=== PATIENT | female | born 1985 | race Caucasian/White ===

== ENCOUNTER 2020-07-11 09:14 | Outpatient (CLI) | payer OTHER, SELFPAY ==
--- NOTE | 2020-07-11 07:00 | DI.US_ITS ---
EXAM: MG MAMMO DIAGNOSTIC BI CLINICAL HISTORY: R breast lump, upper inner quadrant, MSK vs breast,n63.0 TECHNIQUE: Mammograms were interpreted according to the usual protocol including computer analysis w [employer] CAD system, tomosynthesis and C-view imaging. COMPARISON: FINDINGS: Today's mammogram and right breast ultrasound are interpreted in conjunction. The patient reportedly has a questionable palpable abnormality of the right breast. The breasts are heterogeneously dense. No dominant mass or clumped microcalcification seen. There i s no evidence of a mass on breast ultrasound obtained in the region of the patient's questionable pal pable abnormality in approximately the 1 o'clock position breast. IMPRESSION: No specific evidence of malignancy at this time. The negative mammogram and ultrasound not entirely exclude the possibility of malignancy and should not preclude biopsy of any clinically suspicious pal pable breast abnormality. BI-RADS Category 1 - Negative Breast Density - Category C - Heterogeneously dense
--- NOTE | 2020-07-11 10:20 | DI.MAMMO_ITS ---
EXAM: MG MAMMO DIAGNOSTIC BI CLINICAL HISTORY: R breast lump, upper inner quadrant, MSK vs breast,n63.0 TECHNIQUE: Mammograms were interpreted according to the usual protocol including computer analysis w [employer] CAD system, tomosynthesis and C-view imaging. COMPARISON: FINDINGS: Today's mammogram and right breast ultrasound are interpreted in conjunction. The patient reportedly has a questionable palpable abnormality of the right breast. The breasts are heterogeneously dense. No dominant mass or clumped microcalcification seen. There i s no evidence of a mass on breast ultrasound obtained in the region of the patient's questionable pal pable abnormality in approximately the 1 o'clock position breast. IMPRESSION: No specific evidence of malignancy at this time. The negative mammogram and ultrasound not entirely exclude the possibility of malignancy and should not preclude biopsy of any clinically suspicious pal pable breast abnormality. BI-RADS Category 1 - Negative Breast Density - Category C - Heterogeneously dense
== END 2020-07-11 09:34 ==
PROVIDERS: PCP Family Medicine; Visit Provider Nurse Practitioner Women's Health
DX: R92.8 Other abnormal and inconclusive findings on diagnostic imaging of breast (principal); R92.2 Inconclusive mammogram
CPT/HCPCS: 76642; 77062; 77066; G0279

== ENCOUNTER 2021-08-16 11:19 | Outpatient (REF) | payer OTHER, SELFPAY ==
--- NOTE | 2021-08-16 21:00 | POCSPONT_PTH ---
PATIENT: Fabienne Mar LOC: [facility] U#:[id number] AGE/SX: 35/F ROOM: RE08/16/[address]: Rosina De Leon : 1985 BED: DIS: 08/16/2021 SPEC #: [id number] RECD: 08/17/21 11:30 STATUS: AALIYAHMarlen REMynor #: [id number] YESY: 08/16/21 21:[address]: Rosina De Leon DEPT: Surgical Specimen RECD BY: Rea Montenegro ENTERED: 08/18/21 11:31 SP TYPE: CHRIS SULLIVAN DR: Whitley Harding Tissues: CHROMOSOME ANALYSIS PROFILE 1 - ,SPONTANEOUS Procedures: GROSS AND MICRO LEVEL 4 CHROMOSOME ANALYSIS 15-20 CELLS CHROMOSOME ANALYSIS TISSUE CULTURE Comments: [id number] (CYTOGENETICS - [id number])
== END 2021-08-16 11:20 | disposition home or self-care (01) ==
LOC: LBN 11:19
PROVIDERS: PCP Family Medicine; Visit Provider Obstetrics & Gynecology Gynecology
DX: O03.9 Complete or unspecified spontaneous abortion without complication (principal); Z87.59 Personal history of other complications of pregnancy, childbirth and the puerperium
CPT/HCPCS: 88305; 88233; 88262

== ENCOUNTER 2021-08-16 19:53 | Emergency (ER) | payer OTHER, SELFPAY ==
[2021-08-16 20:00] VITALS: BP 130/86; PULSE 100; RESP 18; TEMP 36.9; O2SAT 98
--- NOTE | 2021-08-16 20:10 | ED.GENADUL_ITS ---
Discharge Plan Disposition Patient Disposition: HOME Condition: Stable Discharge Details Clinical Impression: Miscarriage Primary Care Provider: Whitley Harding ED Provider: Shelly Lopez Home Meds and New Rx's Prescriptions: Continued prenat.vits,mary lou,[id number] Tablet 1 tab PO DAILY RF: 0 loratadine [Claritin] 10 mg tablet 10 mg PO DAILY PRN (Reason: allergy symptoms) RF: 0 misoprostol 200 mcg tablet 800 mcg PO Q8H PRN Qty: 12 RF: 0 methylergonovine [Methergine] 0.2 mg tablet 0.2 mg PO TID 2 Days Qty: 6 RF: 0 Discharge Instructions Instructions: Miscarriage (ED) Additional Instructions: Bleeding has slowed down after treatment with Dr. De Leon. You received 1 dose of antibiotics here as was her recommendation. No tissue has come to the lab for genetic testing. Please encourage hydration. Your labs are reassuring here today but your potassium slightly low. Please try to increase potassium rich foods in her diet. Please follow-up with [facility] for reevaluation and to discuss genetic results. Please return to the emergency department if you have increased bleeding, fevers/chills, abdominal pain or other new/worsening symptoms. Referrals: Whitley Harding MD [Primary Care Provider] - Rosina De Leon MD [ [facility] STAFF PHYSICIAN] - Medical Decision Making Patient is a pleasant 35-year-old female, G7, P1 with 6 spontaneous abortions. She is presenting today with chief complaint of heavy bleeding after medical induced . Patient is 10 weeks gestation, had a dating ultrasound yesterday which showed no cardiac activity patient was prescribed misoprostol which she took at 730 this morning. She states that around 1430 this afternoon she began having heavier bleeding. States that she is now passing softball size clots every time she stands up. She denies any lightheadedness, shortness of breath, chest pain. Has not had difficulties with bleeding like this on her previous spontaneous abortions. Has not required surgical D&C. Patient last ate 1 hour ago. She denies any pain at this time. No change in bowel or bladder habits. On exam, patient appears slightly anxious and upset but otherwise nontoxic. Vital signs are stable, abdominal exam benign. We were contacted by Dr. De Leon prior to the patient's arrival here, contacted Dr. De Leon again when she arrived to come and evaluate the patient. Patient was evaluated by Dr. De Leon. Vaginal exam was performed and products of conception was able to be removed from the patient's cervix. Patient feeling much improved and feels like the bleeding has been swelling. She did recommend 1 dosing IV doxycycline which patient is receiving. CBC without significant abnormality, patient is not anemic. No leukocytosis. Deceptively low at 3.2. She is nauseous with me for freestyle, I am concerned that giving her oral potassium right now would increase this. She also prefers to obtain her potassium through good dietary habits and will try to increase potassium rich foods in her diet. Blood type is a positive. Patient continues to feel well. Received IV abx. Will f/u with [facility]. Strict return precautions discussed. All of her questions and concerns were addressed, she in agreement with this plan. HPI General Mode of arrival: ambulatory . Date/Time Provider Initiated Documentation: 08/16/21 19:55 . Limitations to Documentation: no limitations . Information obtained by: patient, RN/MD (contacted by Dr. De Leon prior to arrival), RN notes reviewed and old records reviewed . History of Present Illness 35 year old F presents to the emergency department with the chief complaint of vaginal bleeding in first trimester of , described as severe, Quality is described as other (patient denies pain at this time), and is localized to the genitals. Patient reports no radiation. Patient started experiencing this hour(s) and it has been constant. No relieving factors improve symptom(s), No exacerbating factors reported . Patient notes denies chest pain, diaphoresis, fever/chills, loss of appetite, nausea/vomiting, rash and shortness of breath. Patient did receive the following treatments prior to arrival, other (Misopristol) Related Data Home Medications Medication Instructions Recorded Confirmed loratadine 10 mg tablet 10 mg PO DAILY PRN 07/30/21 08/16/21 prenat.vits,mary lou,[id number] 1 tab PO DAILY 07/30/21 08/16/21 misoprostol 200 mcg tablet 800 mcg PO Q8H PRN #12 tab 08/15/21 08/16/21 methylergonovine 0.2 mg tablet 0.2 mg PO TID 2 Days #6 tab 08/16/21 08/16/21 Previous Rx's Medication Instructions Recorded misoprostol 200 mcg tablet 800 mcg PO Q8H PRN #12 tab 08/15/21 methylergonovine 0.2 mg tablet 0.2 mg PO TID 2 Days #6 tab 08/16/21 Allergies Allergy/AdvReac Type Severity Reaction Status Date / Time nickel AdvReac Skin Rash Unverified 08/16/21 20:03 General Stated Complaint: [facility] JO: 2 Review of Systems Constitutional Constitutional: Reports as per HPI, Denies chills, Denies fatigue, Denies fever(s) and Denies headache(s) ENT Ears, Nose, Mouth, and Throat: Denies dizziness and Denies headache(s) Cardiovascular Cardiovascular: Reports as per HPI, Denies chest pain and Denies dyspnea Respiratory Respiratory: Reports as per HPI, Denies cough and Denies dyspnea Gastrointestinal Gastrointestinal: Reports as per HPI Genitourinary Genitourinary: Reports as per HPI Musculoskeletal Musculoskeletal: Reports as per HPI and Denies back pain Integumentary/Breasts Skin/Breast: Reports as per HPI and Denies rash Neurologic Neurologic: Reports as per HPI, Denies dizziness and Denies headache(s) Endocrine Endocrine: Denies fatigue [facility] Active Problem List Incomplete (Acute) Miscarriage (Acute) (Acute) History of recurrent miscarriages (Acute) Social History Smoking/Tobacco Use Status: Never Smoking risk assessment performed?: Yes Alcohol Intake: never Drug use: Never Do you feel safe at home: Yes Do you feel safe in your relationship?: Yes Female Reproductive History Menstrual control method: none History History 7 Para 1 Hx # Term Pregnancies 1 Multiple births Hx # Pregnancies Ectopic pregnancies AB induced Hx Number of Living Children 1 AB spontaneous 6 Exam Const General: cooperative, healthy appearing, comfortable, no acute distress, well developed and anxious Nutritional Appearance: average body habitus and well nourished Orientation: alert and awake HENMT Head: normal to inspection Mouth: moist mucous membranes Resp Effort & Inspection: normal respiratory effort, able to speak in complete sentences and no respiratory distress Auscultation: clear to auscultation bilaterally, no rales, no rhonchi and no wheezes Cardio Rate: regular rate Rhythm: regular rhythm Heart Sounds: S1 normal and S2 normal GI Inspection: normal to inspection Palpation: soft and nontender Auscultation: normal bowel sounds Back/Spine/Pelvis Back: no CVA tenderness Skin General skin exam: no rashes or lesions noted Trauma: no lacerations or abrasions Neuro General: patient alert and patient awake Cognition: normal cognition Speech: speech normal Gait: normal gait Psych Appearance: grossly normal and well kempt Mental Status: mental status grossly normal Speech and Movement: speech and movement normal Course Vital Signs Vital signs: Vital Signs Temperature 36.9 C 08/16/21 20:00 Pulse 100 H 08/16/21 20:00 Respiratory Rate 18 08/16/21 20:00 Blood Pressure 130/86 08/16/21 20:00 Pulse Oximetry 98 08/16/21 20:00 Temperature 36.9 C 08/16/21 20:00 Temperature Source Temporal Artery Scan 08/16/21 20:00 Pulse 100 H 08/16/21 20:00 Respiratory Rate 18 08/16/21 20:00 Respiratory Effort Non-Labored 08/16/21 20:03 Blood Pressure 130/86 08/16/21 20:00 Pulse Oximetry 98 08/16/21 20:00 Oxygen Delivery Method Room Air 08/16/21 20:00 Oxygen Flow Rate 0 08/16/21 20:00 Pain Level 0 08/16/21 20:00
[2021-08-16] MEDS: Lactated Ringers 1,000 ML 1000 ML IV (20:19)
--- NOTE | 2021-08-16 20:19 | NUR.NOTE ---
Nursing Note: Patient brought in product of conception in a specimen container. Specimen labeled .
[2021-08-16 20:25] LABS: Abs Immature Grans 0.02 10^3/uL (0.0-0.06); Absolute Basophil Count 0.04 10^3/uL (0.0-0.2); Absolute Eosinophil Count 0.15 10^3/uL (0.0-0.7); Absolute Lymphocyte Count 2.51 10^3/uL (1.2-3.4); Absolute Monocyte Count 0.39 10^3/uL (0.1-0.8); Absolute Neutrophil Count 5.86 10^3/uL (1.2-6.7); Basophils % 0.4; Eosinophils % 1.7; HCT 36.7 % (36.0-46.0); HGB 12.4 g/dL (11.2-15.7); Immature Grans % 0.2; MCH 31.5 pg (27.0-33.0); MCHC 33.8 % (32.0-36.0); MCV 93.1 fL (80-95); MPV 10.1 fL (8.0-11.0); Monocytes % 4.3; Neutrophils % 65.4; Nucleated RBC 0 %; Platelet Count 253 10^3/uL (130-400); RBC 3.94 10^6/uL (3.93-5.22); RDW 11.8 % (11.7-14.6); RDW-SD 40.2 fL; WBC 8.97 10^3/uL (4.4-10.8)
[2021-08-16 20:28] LABS: Source Nasal/Nares
[2021-08-16 21:02] LABS: ALT 24 U/L (14-59); AST 14 U/L (15-37); Albumin 4.1 g/dL (3.4-5.0); Alkaline Phosphatase 51 U/L (46-116); Anion Gap 11.6 mmol/L (3-11); BUN 23 mg/dL (7-18); Bilirubin, Total 0.2 mg/dL (0.2-1.0); CO2 24.4 mmol/L (21.0-32.0); CREATININE 0.9 mg/dL (0.55-1.02); Chloride 101 mmol/L (98-107); Glucose 130 mg/dL (74-106); Potassium 3.2 mmol/L (3.5-5.1); Sodium 137 mmol/L (136-145); Total Protein 7.9 g/dL (6.4-8.2)
[2021-08-16 21:07] LABS: HCG Quant, Pregnancy 8873 mIU/mL (1-3)
[2021-08-16 21:10] LABS: COVID-19 PCR Negative (Negative)
--- NOTE | 2021-08-16 21:13 | OBCE_ITS ---
Date of service: 08/16/21 Time of Service: 21:13 Assessment and Plan Assessment and plan (1) Miscarriage: Status: Acute (2) Incomplete : Status: Acute Assessment and plan: Products of conception removed from external os. Gentle insertion of the ring forcep into the uterine cavity failed to return any additional products of conception. Patient was administered on a milligrams of doxycycline IV. The tissue was placed into sterile containers with normal saline and delivered to the lab. Patient will be discharged home with follow-up by phone 08/17/2021. She has an office visit scheduled on 08/23/2021 for discussion regarding recurrent SAB work-up. History of Present Illness History of Present Illness Chief Complaint: Complete SAB Consults Consult date: 08/16/21 [facility] Active Problem List (Updated 08/16/21 @ 21:26 by Rosina De Leon MD) Incomplete (Acute) Miscarriage (Acute) (Acute) History of recurrent miscarriages (Acute) Social History Smoking/Tobacco Use Status: Never Smoking risk assessment performed?: Yes Alcohol Intake: never Drug use: Never Do you feel safe at home: Yes Do you feel safe in your relationship?: Yes Female Reproductive History Menstrual control method: none History History 7 Para 1 Hx # Term Pregnancies 1 Multiple births Hx # Pregnancies Ectopic pregnancies AB induced Hx Number of Living Children 1 AB spontaneous 6 Exam Narrative Exam Narrative: Patient is a 35-year-old G7, P1 SAB 6 female with a known first trimester embryonic loss who [facility] to report passage of tissue with gushes of blood. I advised her to presented to the emergency department for further evaluation. LMP 06/04/2021 07/31/21. Initial OB TV U/S: viable IUP measuring 8.1wks. 08/15/2021. Embryonic demise with CRL c/w 8wks. No cardiac activity on sono. Patient declined D&C preferred medical management. She was given misoprostol to be taken at home. Onset of bleeding early this morning with increasing amounts of copious bright red blood throughout the day. Const General: no acute distress Nutritional Appearance: average body habitus Orientation: alert, awake and oriented x3 Resp Effort & Inspection: normal respiratory effort Cardio Rate: regular rate Rhythm: regular rhythm GI Inspection: normal to inspection Palpation: soft, no masses and nontender External Female Exam: normal external appearance and other (Blood on perineum and thighs) Speculum Exam - Vagina: tissue present in vagina (Protruding from external os with copious blood in vaginal vault) Speculum Exam - Cervix: cervical os open (Products of conception regressed with a ring forcep and sent to pathology) Bimanual Exam- Vagina & Uterus: normal bimanual exam and uterine size normal (Consistent with 8-week EGA) Other: With the patient in the dorsolithotomy position a bivalve speculum was pl aced in the vagina with the above-noted findings. Ring forcep was used to grasp the tissue protruding from the external os. The cervical os was carefully inspected and no evidence of copious bleeding was noted. The sterile ring forceps was then inserted into the uterine cavity with no tissue returned after several attempts. The heavy bleeding from the cervical os had subsided. The speculum and instruments were removed from the vagina. Skin General skin exam: no rashes or lesions noted Extrem General: normal to inspection Psych Appearance: grossly normal Mental Status: mental status grossly normal Speech and Movement: speech and movement normal Mood: congruent mood Affect: normal affect Attitude: cooperative Thought Process: normal Thought Content: normal Results Last Vital Signs Temp 98.4 F 08/16/21 20:00 Pulse 100 H 08/16/21 20:00 Resp 18 08/16/21 20:00 BP 130/86 08/16/21 20:00 Pulse Ox 98 08/16/21 20:00 Labs Result diagrams: 08/16/21 20:10 08/16/21 20:10 Labs: Laboratory Results - last 24 hr 08/16/21 08/16/21 08/16/21 20:10 20:10 20:10 WBC 8.97 RBC 3.94 Hgb 12.4 Hct 36.7 MCV 93.1 MCH 31.5 MCHC 33.8 RDW 11.8 Plt Count 253 MPV 10.1 Immature Gran % 0.2 Neutrophils % 65.4 Lymphocytes % 28.0 Monocytes % 4.3 Eosinophils % 1.7 Basophils % 0.4 Nucleated RBC % 0 Absolute Neutrophils 5.86 Absolute Lymphocytes 2.51 Absolute Monocytes 0.39 Absolute Eosinophils 0.15 Absolute Basophils 0.04 Sodium 137 Potassium 3.2 L Chloride 101 Carbon Dioxide 24.4 Anion Gap 11.6 H BUN 23 H Creatinine 0.9 Estimated GFR/1.73 m2 >= 60.00 Glucose 130 H Calcium 9.0 Total Bilirubin 0.2 AST 14 L ALT 24 Alkaline Phosphatase 51 Total Protein 7.9 Albumin 4.1 Beta HCG, Quant 8873 H COVID-19 Source Patient ABO/Rh A Positive Antibody Screen NEGATIVE 08/16/21 20:10 WBC RBC Hgb Hct MCV MCH MCHC RDW Plt Count MPV Immature Gran % Neutrophils % Lymphocytes % Monocytes % Eosinophils % Basophils % Nucleated RBC % Absolute Neutrophils Absolute Lymphocytes Absolute Monocytes Absolute Eosinophils Absolute Basophils Sodium Potassium Chloride Carbon Dioxide Anion Gap BUN Creatinine Estimated GFR/1.73 m2 Glucose Calcium Total Bilirubin AST ALT Alkaline Phosphatase Total Protein Albumin Beta HCG, Quant COVID-19 Source Nasal/Nares Patient ABO/Rh Antibody Screen
[2021-08-16] MEDS: DOXYCYCLINE 100 MG in Normal Saline 100 ML IVPB (21:19)
[2021-08-16 22:12] VITALS: BP 130/86; PULSE 100; RESP 18; TEMP 36.9; O2SAT 98
== END 2021-08-16 22:20 | disposition home or self-care (01) ==
PROVIDERS: Emergency Provider Physician Assistant; PCP Family Medicine
DX: O03.4 Incomplete spontaneous abortion without complication (principal)
CPT/HCPCS: 80053; 86850; 86900; 86901; 87635; 96361; 96365; 99284; 84702; 85025; 99283

== ENCOUNTER 2022-12-05 09:49 | Outpatient (REF) | payer OTHER, SELFPAY ==
--- NOTE | 2022-12-05 09:30 | PAPFT_PTH ---
PATIENT: Fabienne Mar LOC: [facility] U#:[id number] AGE/SX: 36/F ROOM: RE12/05/[address]: Arlette Post DO : 1985 BED: DIS: 12/05/2022 SPEC #: [id number] RECD: 12/05/22 12:57 STATUS: ZELAL[place] REQ #: [id number] YESY: 12/05/22 09:[address]: Arlette Post DEPT: [facility] Cytology RECD BY: Chanel German ENTERED: 12/05/22 12:58 SP TYPE: PAPFT OTHR DR: Whitley Harding Tissues: 1 - CX/ENDOCX FOR PAP SMEARS Procedures: PAP THIN PREP/UVM Screening HPV DNA PROBE Comments: [id number] (CHLAMYDIA/GC)
[2022-12-08 13:28] LABS: Chlamydia Result Negative (Negative); GC Result Negative (Negative)
== END 2022-12-05 09:50 | disposition home or self-care (01) ==
LOC: LBN 09:49
PROVIDERS: PCP Family Medicine; Visit Provider Obstetrics & Gynecology
DX: Z11.3 Encounter for screening for infections with a predominantly sexual mode of transmission (principal); Z12.4 Encounter for screening for malignant neoplasm of cervix; Z11.51 Encounter for screening for human papillomavirus (HPV)
CPT/HCPCS: 87491; 87591; 88142; 87624

== ENCOUNTER 2024-07-27 01:22 | Outpatient (CLI) | payer OTHER, SELFPAY ==
--- NOTE | 2024-07-27 07:00 | DI.MAMMO_ITS ---
Exam(s) US BREAST RT LIMITED MG MAMMO DIAGNOSTIC BI EXAM: MG MAMMO DIAGNOSTIC BI CLINICAL HISTORY: diagnostic,rt breast lump,n63.10. COMPARISON: US US BREAST RT COMPLETE from 07/11/2020 MG MG MAMMO DIAGNOSTIC BI from 07/11/2020 US US BREAST RT LIMITED from 07/27/2024 TECHNIQUE: Craniocaudal and mediolateral oblique Full Field Digital Mammography views of both breast s with Computer Aided Diagnosis followed by Tomosynthesis and right breast ultrasound. FINDINGS: Mammography/Tomosynthesis: Masses/Architectural Distortion: None seen. Microcalcifications: No suspicious pleomorphic-type are seen. Skin Thickening/Nipple Retraction: None. Right breast US: Echotexture: Normal appearance of the glandular tissue. Shadowing: No suspicious foci. Cyst: None. Solid lesions: Circumscribed 4 x 2 x 4 millimeter hypoechoic nodule without internal vascularity. Th e findings may represent a small fibroadenoma versus proteinaceous cyst. Ductal dilation: None. IMPRESSION: 1. 4 millimeter benign appearing lesion corresponding to the palpable abnormality. 2. Unless there is more urgent need, follow-up screening mammography is recommended, as per [place] [employer] guidelines. BI-RADS Category 2 - Benign Findings Breast Density - Category C - Heterogeneously dense Breast density category C or D implies that the patient has dense breast tissue. Dense breast tissue is very common and is not abnormal but dense breast tissue can make it harder to find cancer on a ma mmogram. Also, dense breast tissue may increase their breast cancer risk. This information about the result of the mammogram report was provided to the patient to raise their awareness. Use this report when you speak with the patient about their risks for breast cancer, which includes their family hist ory. At that time, you may recommend for more screening tests (Ultrasound or MRI) as they might be us eful based on their risk. A negative radiographic report should not delay biopsy if a dominant or clinically suspicious mass is present. Up to ten percent of cancers are not identified on mammography. A negative report may reinforce clinical impression. Adenosis and dense breasts may obscure an underlying neoplasm. False positive reports average 6 to 10%. Patient will receive a letter notifying them of these results.
== END 2024-07-27 01:42 ==
LOC: DI 01:23
PROVIDERS: PCP Family Medicine; Visit Provider Obstetrics & Gynecology
DX: N63.11 Unspecified lump in the right breast, upper outer quadrant (principal); Z12.31 Encounter for screening mammogram for malignant neoplasm of breast
CPT/HCPCS: 76642; 77062; 77066; G0279

== ENCOUNTER 2025-01-26 01:18 | Outpatient (CLI) | payer OTHER, SELFPAY ==
--- NOTE | 2025-01-26 07:44 | DI.US_ITS ---
Exam(s) US BREAST LT COMPLETE MAMMO DIAGNOSTIC UNI EXAM: MAMMO DIAGNOSTIC UNI and U/S breast LT complete CLINICAL HISTORY: Left breast lump, N63.20. TECHNIQUE: Craniocaudal and mediolateral oblique Full Field Digital Mammography views of the left br east with Computer Aided Diagnosis followed by Tomosynthesis and left breast ultrasound. All 4 quadr ants of the left breast were evaluated sonographically in addition to the left axilla and left retroa reolar regions. COMPARISON: Comparison is made with prior examinations. FINDINGS: Mammography/Tomosynthesis: Masses/Architectural Distortion: No suspicious masses or areas of architectural distortion are presen t. Microcalcifictions: No suspicious pleomorphic-type are seen. Skin Thickening/Nipple Retraction: None. Complete left breast US: Echotexture: Normal appearance of the glandular tissue. Shadowing: No suspicious foci. Cyst: None. Solid lesions: None seen. Ductal dilation: None. IMPRESSION: 1. No evidence of malignancy is noted. 2. Unless there is more urgent need, follow-up screening mammography is recommended, as per [place] [employer] guidelines. 3. The findings were discussed with the patient on the date of the examination. BI-RADS Category 1 - Negative Breast Density - Category C - The breast are heterogeneously dense, which may obscure small masses. Breast density Category C or D implies that the patient has dense breast tissue. Dense breast tissue can make it harder to find cancer on a mammogram. Dense breast tissue is also associated with an incr eased risk of breast cancer. This information about the result of the mammogram report was provided to the patient to raise their awareness. Use this report when you speak with the patient about their risks for breast cancer, which includes their family history. At that time, you may recommend additional screening tests (Ultrasoun d or MRI) as these tests may add significant information. A negative radiographic report should not delay biopsy if a dominant or clinically suspicious mass is present. Up to ten percent of cancers are not identified on mammography. A negative report may reinforce clinical impression. Adenosis and dense breasts may obscure an underlying neoplasm. False positive reports average 6 to 10%. Patient will receive a letter notifying them of these results.
== END 2025-01-26 01:38 ==
LOC: DI 01:18
PROVIDERS: PCP Family Medicine; Visit Provider Obstetrics & Gynecology
DX: Z12.31 Encounter for screening mammogram for malignant neoplasm of breast (principal); N63.25 Unspecified lump in the left breast, overlapping quadrants
CPT/HCPCS: 76642; 77061; 77065; G0279